=== PATIENT | female | born 1990 | race Caucasian/White ===

== ENCOUNTER → 2018-12-04 15:37 | Outpatient (CLI) | payer OTHER, SELFPAY ==
[2014-10-02 00:27] VITALS: BMI 18.5
[2018-12-04 17:39] LABS: Hematocrit 43.5 % (37-47); Hemoglobin 14.4 g/dl (12.0-15.0); Mean Corp Hgb Conc 33.1 g/gl (32-36); Mean Corpuscular Hgb 30.7 pg (27.0-32.0); Mean Corpuscular Volume 92.8 fL (81-99); Mean Platelet Vol. 9.1 fl (6.2-12.0); Platelet Count 465 K/mm3 (150-450); RBC Distribution Width CV 12.5 % (11.6-14.6); Red Blood Count 4.69 M/mm3 (4.2-5.4); White Blood Count 10.7 K/mm3 (4.4-11.0)
[2018-12-04 17:47] LABS: Scan Indicated on CBC? Y/N NO
[2018-12-04 17:59] LABS: CRP < 2.90 mg/L (0.0-3.0); T4 Total, Thyroxin 12.4 ug/dL (4.8-13.9); Thyroid Stim Hormone (TSH) 1.11 uIU/mL (0.358-3.74)
[2018-12-06 20:07] LABS: Endomysial Antibody IgA Negative (Negative)
[2018-12-07 09:28] LABS: Immunoglobulin A 316 mg/dL (87-352); t-Transglutaminase IgA <2 U/mL (0-3)
== END ==
PROVIDERS: Family Provider Nurse Practitioner Family; PCP Nurse Practitioner Family; Referring Provider Internal Medicine Gastroenterology; Visit Provider Internal Medicine Gastroenterology
DX: R10.9 Unspecified abdominal pain (principal); R63.4 Abnormal weight loss
CPT/HCPCS: 36415; 82784; 83516; 84436; 84443; 85027; 86140; 86255

== ENCOUNTER 2020-05-07 13:01 | Emergency (ER) | payer OTHER, SELFPAY ==
[2020-05-07 13:03] VITALS: BP 139/102; PULSE 117; RESP 12; TEMP 36.6; O2SAT 98; BMI 20.1
[2020-05-07] MEDS: MethylPREDNISolone 125 MG/2 ML Vial 80 MG IV (13:11)
[2020-05-07] MEDS: DiphenhydrAMINE 50 MG/ML Syringe 25 MG IV (13:11)
[2020-05-07 13:21] VITALS: BP 119/90; PULSE 98; RESP 14; O2SAT 100
--- NOTE | 2020-05-07 14:23 | ED.VIS.GEN ---
History of Present Illness Chief Complaint: Allergic Reaction Informant: Patient Onset: Today Narrative: Patient was eating sunflower kernels when all of a sudden she felt tingling in her lips and felt that her throat was swelling and she could not breathe. She took 2 Benadryl came to emergency. She denies any prior reaction to sunflower seeds. Past Medical History - Allergies and Home Meds Allergies/Adverse Reactions: Allergies Penicillins [PCN] Allergy (Verified 10/02/14 00:29) Hives Primary Care Physician: Shanell Savage NP-C [Primary Care Provider] - Smoking Status: Never smoker Review of Systems General: Denies: Chills, Fever, Sweats Eyes: Denies: Visual changes - bilaterally, Diplopia ENT: Reports: - - Sensation of throat swelling. Denies: Rhinorrhea, Sore throat Cardiovascular: Denies: Chest pain, Palpitations Respiratory: Reports: Dyspnea. Denies: Cough, Dyspnea on exertion Gastrointestinal: Denies: Abdominal pain, Nausea, Vomiting, Diarrhea, Melena, Hematochezia Genitourinary: Denies: Dysuria, Hematuria, Frequency Musculoskeletal: Denies: Back pain, Extremity Pain Skin: Denies: Rash, Wounds Neurological: Denies: Headache, Weakness, Numbness Physical Exam Vital Signs/Narrative: Vital Signs Temp Pulse Resp BP Pulse Ox 05/07/20 13:21 98 14 119/90 H 100 05/07/20 13:03 98 F 117 H 12 139/102 H 98 Inital Vital Signs reviewed: Yes General: Well nourished, Well developed, No Acute Distress Head: Normocephalic, Atraumatic Eyes: Perrl, EOMI ENT: Moist mucous membranes, No rhinorrhea, - - There is no stridor. I do not see any swelling of the tongue or oral pharyngeal tissue. Neck: Supple, Nontender Cardiovascular: Regular rate, Regular rhythm, No murmurs Respiratory: No distress, CTA bilaterally, Chest nontender Abdomen: Soft, Nontender, Nondistended, Normal bowel sounds Back: Nontender, Normal Inspection Extremities: Nontender, No edema Skin: Normal color, - - There is some redness on the upper anterior chest. I do not see hives. Neurological: Alert, Oriented x3, Cranial nerves II-XII grossly intact, Normal Strength, Normal Sensation Psychological: - - Patient appears very anxious Diagnostic/Tx/Re-eval - Medical Decision Making Patient received 25 mg of Benadryl and 80 of Solu-Medrol and she was observed. After 2 hours she is doing well. Patient will be discharged home with instructions for Benadryl and I will write for prednisone for a couple days. ED Disposition - Plan for ED Patient: Disposition: Home or Assisted Living Diagnosis: Allergic reaction to food Instructions: ED General Allergic Reactions Prescriptions: Prednisone [Deltasone] 40 mg PO DAILY #6 tab Prescription Printed Referrals: Shanell Savage NP-C [Primary Care Provider] - As Needed Additional Instructions: Please take Benadryl 25 mg every 8 hours for the next 2 days
[2020-05-07 15:09] VITALS: BP 108/75; PULSE 100; PULSE 98; RESP 18; O2SAT 98
== END 2020-05-07 15:15 | disposition home or self-care (01) ==
LOC: ED 14:25
PROVIDERS: Emergency Provider Emergency Medicine; PCP Nurse Practitioner Family
DX: T78.1XXA Other adverse food reactions, not elsewhere classified, initial encounter (principal)
CPT/HCPCS: 96374; 96375; 99284; A4216

== ENCOUNTER 2022-03-17 21:22 | Inpatient (IN) | payer OTHER, MEDICAID, SELFPAY ==
[2022-03-17 19:41] VITALS: TEMP 36.2
[2022-03-17 19:49] VITALS: BP 112/78; PULSE 109; O2SAT 99
[2022-03-17 20:05] VITALS: BMI 25.3
[2022-03-17 21:16] LABS: ROM Internal Control Test YES-OK TO RESULT pt. (Internal QC)
[2022-03-17 21:17] LABS: ROM Patient Test POSITIVE (Negative)
[2022-03-17 22:23] LABS: Absolute Lymphocyte Count 3.06 X10^3/uL (0.83-4.51); Absolute Neutrophil Count 12.3 X10^3/uL (2.0-7.7); Basophil# 0.04 X10^3/uL; Basophil% 0.2 % (0-1); Eosinophil# 0.05 X10^3/uL; Eosinophils% 0.3 % (0-5); Hematocrit 36.8 % (37-47); Hemoglobin 12.4 g/dL (12.0-15.0); Lymphocyte # 3.06 X10^3/ul (0.83-4.51); Lymphocyte % 18.5 % (19-41); Mean Corp Hgb Conc 33.7 g/dL (32-36); Mean Corpuscular Hgb 29.9 pg (27.0-32.0); Mean Corpuscular Volume 88.7 fL (81-99); Mean Platelet Vol. 9.3 fl (6.2-12.0); Monocyte% 5.4 % (0-10); NRBC Flagged by Analyzer 0 % (0-5); Neutrophil # 12.34 X10^3/uL (2.7-7.7); Neutrophil % 74.7 % (47-70); Platelet Count 436 K/mm3 (150-450); RBC Distribution Width CV 15.5 % (11.6-14.6); RBC Distribution Width SD 50.3 fl (35.1-43.9); Red Blood Count 4.15 M/mm3 (4.2-5.4); White Blood Count 16.5 K/mm3 (4.4-11.0)
[2022-03-17 23:02] VITALS: BP 115/78; PULSE 88
[2022-03-18] VITALS (87 sets, daily range): BP systolic 82–134; BP diastolic 49–87; PULSE 59–125; RESP 16; TEMP 36.3–37.4; O2SAT 82–100
[2022-03-18] MEDS: Lactated Ringers 1,000 ML 50 ML IV (00:10)
[2022-03-18] MEDS: Ondansetron 4 MG/2 ML Vial IV ×2 (01:09→22:12)
[2022-03-18] MEDS: Lactated Ringers 500 ML 999 ML IV ×2 (02:11→03:40)
--- NOTE | 2022-03-18 03:05 | PCM.HP.OB ---
HPI - General General Date of Admission: 03/17/22 HPI Narrative FLOR AGUAYO, is a 32 F who presents with rupture of membranes at term. at 39w5d. complicated by anxiety, depression and history of PTSD. unplanned but accepted. Maternal Data Information JEROME Calculator Estimated Delivery Date Method Current WG Current Estimate 03/20/22 Manual 39w 5d PFSH PFSH Medical History (Updated 03/18/22 @ 03:13 by Lissett Addison CNM) Anxiety Depression HPV (human papilloma virus) infection Home Medications aspirin [Baby Aspirin] 81 mg PO DAILY 03/17/22 [History Last Taken 03/17/22 06:30] cetirizine [Zyrtec] 10 mg PO DAILY PRN 03/17/22 [History Last Taken 03/16/22 22:00] ferrous sulfate 325 mg PO QHS 03/17/22 [History Last Taken 03/16/22 22:00] vit-iron fum-folic ac [Prena-Tab] 1 tab PO DAILY 03/17/22 [History Last Taken 03/16/22 06:30] Allergy/AdvReac Type Severity Reaction Status Date / Time amoxicillin Allergy Hives Verified 03/17/22 22:30 Penicillins [PCN] Allergy Hives Verified 03/17/22 22:30 peaches Allergy Hives Uncoded 03/17/22 22:31 sunflower seeds Allergy Anaphylaxis Uncoded 03/17/22 22:31 Surgical History (Updated 03/17/22 @ 22:48 by Lori Bucio) History of surgery Social History Smoking Status: Never smoker History Elective abortions Hx Para 0 Spontaneous abortions Hx # Term Pregnancies Ectopic pregnancies Hx # Pregnancies Multiple births # of living children NST FHR Rate Baby A Baseline: 140 Variability:: Moderate Accelerations:: 15 x 15 Decelerations:: Variable FHR Category:: Category II Uterine Activity:: every 3 minutes, strong ROS Constitutional Constitutional: Reports systems reviewed and no addt'l complaints, except as documented; Denies headache(s) Eyes Eyes: Denies acute decrease in peripheral vision, blurry vision or change in vision ENT HEENT: Reports systems reviewed and no addt'l complaints, except as documented Cardiovascular Cardiovascular: Denies chest pain or dizziness Respiratory/Chest Respiratory/Chest: Denies cough, dyspnea, dyspnea on exertion, shortness of breath at rest or shortness of breath with exertion Gastrointestinal Gastrointestinal: Denies abdominal pain, diarrhea, nausea or vomiting Genitourinary Genitourinary: Denies abdominal discomfort or movement Musculoskeletal Musculoskeletal: Denies limited range of motion Integumentary Integumentary: Reports systems reviewed and no addt'l complaints, except as documented Neurologic Neurologic: Reports systems reviewed and no addt'l complaints, except as documented Psychiatric Psychiatric: Reports systems reviewed and no addt'l complaints, except as documented Endocrine Endocrinology: Reports systems reviewed and no addt'l complaints, except as documented Hematologic/Lymphatic Hematologic/Lymphatic: Reports systems reviewed and no addt'l complaints, except as documented Allergic/Immunologic Allergic/Immunologic: Reports systems reviewed and no addt'l complaints, except as documented Vital Signs Vital Signs Vital Signs: 03/17/22 19:41 03/17/22 19:49 03/17/22 23:02 Temperature 97.2 F L Temperature Source Temporal Pulse Rate 109 H 88 Blood Pressure 112/78 115/78 BP Systolic 112 115 BP Diastolic 78 78 Pulse Ox 99 03/18/22 00:06 03/18/22 01:03 03/18/22 01:05 Temperature 97.8 F Temperature Source Temporal Pulse Rate 90 103 H 102 H Blood Pressure 117/78 88/58 L 86/59 L BP Systolic 117 88 86 BP Diastolic 78 58 59 Pulse Ox 98 03/18/22 01:13 03/18/22 02:28 Temperature 97.8 F Temperature Source Temporal Pulse Rate 93 64 Blood Pressure 125/83 H 134/68 H BP Systolic 125 134 BP Diastolic 83 68 Pulse Ox Weight Weight: 134 lb 0.657 oz Body Mass Index (BMI) 25.3 Physical Exam Const alert and oriented x3 General Appearance: cooperative Orientation / Consciousness: awake, oriented to person, oriented to place and oriented to time Exam Limitations: no limitations HEENT normocephalic Head and Scalp: normal to inspection, normocephalic and atraumatic Face and Sinus: normal facial exam Eyes General Eye: normal appearance of both eyes Neck full ROM Chest Chest: symmetrical chest wall rise Resp normal respiratory effort and normal air movement Auscultation: clear to auscultation bilaterally Cardio regular rate, regular rhythm, S1 normal heart sound, S2 normal heart sound, no murmurs, no rub, no gallops and no clicks GI normal to inspection, nondistended, normoactive bowel sounds and non-tender appearance of the vagina normal Bladder / Kidney Exam: no CVA tenderness Manual OB Exam: estimated gestational size appropriate, presentation cephalic and dilated 5cm per nursing staff Amniotic Fluid: ROM+plus positive + Back/Spine normal ROM Extremity normal to inspection and full ROM Skin no rashes or lesions noted Neuro oriented x3, CN's II-XII intact bilaterally and moves all extremities Sensorium / Orientation: awake, alert and oriented to person Motor Exam: clonus absent Deep Tendon Reflexes: Rt Patellar (L4): 2+ and Lt Patellar (L4): 2+ Labs Labs Labs: Blood Type O POSITIVE Antibody Screen NEGATIVE Hct 36.8 % (37-47) L Hgb 12.4 g/dL (12.0-15.0) RPR negative HIV negativ HBsAG negative HepC negative Rubella Immune GC/CT negative O positive, antibody screen negative GBS positive Assessment & Plan (1) PROM (premature rupture of membranes): (2) Term : (3) History of depression: (4) History of anxiety: (5) PTSD (post-traumatic stress disorder): PLAN: 1) Admit to labor and delivery 2) Routine labs, covid testing 3) Continuous EFM 4) Epidural for pain management upon request 5) GBS positive, PCN allergic with hives. Vancomycin 20mg/kg every 8 hrs 6) notified of labor
[2022-03-18] MEDS: fentaNYL-bupivacaine (epidural) 100 ML BAG EPIDURAL ×4 (03:40→14:22)
[2022-03-18] MEDS: Lactated Ringers 1,000 ML 200 ML IV ×2 (08:17→13:18)
[2022-03-18] MEDS: Mag Hydrox/Al Hydrox/Simeth 30 ML UDC PO (11:18)
[2022-03-18] MEDS: Oxytocin 30 units/NS 500 ml 30 UNITS/500 ML IV.SOLN 334 UNITS IV (16:02)
--- NOTE | 2022-03-18 16:34 | EX.PCM.OBRPT ---
Assessment & Plan (1) Vaginal delivery: (2) PTSD (post-traumatic stress disorder): (3) History of anxiety: (4) History of depression: Maternal Data Information JEROME Calculator Estimated Delivery Date Method Current WG Current Estimate 03/20/22 Manual 39w 5d Vaginal Delivery Maternal Presentation Maternal Presentation: Active Labor and Spontaneous Rupture of Membranes (PROM) Operative Information Date of Procedure: 03/18/22 Pre-Operative Diagnosis: PROM at term Post-Operative Diagnosis: , 2nd degree perineal laceration Surgery / Procedure Performed: Spontaneous Vaginal Delivery Type of Anesthesia: Epidural Estimated Blood Loss: 300 ml Time of Delivery: 15:59 Findings Description of Procedure: Progressed to complete with urge to push. Epidural for pain management. of viable male over 2nd degree LML episiotomy. APGARS 8,9. Infant head with heart tones to approximately 75bmp, consent for episiotomy to expedite delivery. head delivered and body immediately forthcoming, CAN x1, delivered through and placed on maternal abdomen. Mouth and nares suctioned for secretions strong cry. Pitocin started for active 3rd stage management. Cord clamped and cut after pulsations ceased. Placenta delivered intact via dayday, 3 vessel cord. Perineum inspected and LML episiotomy repaired with 3.0 vicryl under epidural analgesia. Well approximated and hemostasis achieved. EBL 300ml. Sponge and instrument count correct. Vaginal sweep completed. Mom and baby stable, bonding well. Planning to breastfeed. notified of delivery. Presentation: Vertex and EREN Amniotic Membrane Rupture Type: Spontaneous Amniotic Fluid Description: Clear Placental Delivery Description: Expressed Placenta Disposition: [facility] Cord Vessel Description: 3 Vessels Cord Entanglement: Around neck x 1, loose Nuchal Cord Compression: Without compression A Gender: Male Delayed Cord Clamping: Yes Post Vaginal Delivery Medications Given After Delivery: IV Pitocin Episiotomy Description: Left Mediolateral and 2nd degree Laceration: None Complication Complications: None
[2022-03-18] MEDS: Ibuprofen 600 MG Tablet PO (19:02)
[2022-03-18] MEDS: Benzocaine/Lanolin/Aloe Vera 1 SPRAY EACH TOPICAL (19:04)
[2022-03-18] MEDS: 0.9% Saline Lock 10 ML Syringe IV (22:13)
[2022-03-19] VITALS (14 sets, daily range): BP systolic 95–111; BP diastolic 52–74; PULSE 84–120; RESP 16; TEMP 36.1–36.6; O2SAT 91–100
[2022-03-19] MEDS: Ibuprofen 600 MG Tablet PO ×2 (03:46→16:02)
[2022-03-19 05:27] LABS: Hematocrit 33.1 % (37-47); Hemoglobin 10.9 g/dL (12.0-15.0); Mean Corp Hgb Conc 32.9 g/dL (32-36); Mean Corpuscular Hgb 29.9 pg (27.0-32.0); Mean Corpuscular Volume 90.9 fL (81-99); Mean Platelet Vol. 9.6 fl (6.2-12.0); Platelet Count 386 K/mm3 (150-450); RBC Distribution Width CV 15.8 % (11.6-14.6); Red Blood Count 3.64 M/mm3 (4.2-5.4); White Blood Count 27.2 K/mm3 (4.4-11.0)
[2022-03-19] MEDS: Senna/Docusate Sodium 1 Tablet PO (08:30)
--- NOTE | 2022-03-19 10:06 | PCM.PN.OB ---
Subjective Subjective Doing well per patient and nursing staff. Ambulating and taking PO without difficulty. Voiding and passing flatus. Pain controlled. , services for assistance. Denies headache, visual changes, chest pain, shortness of breath, leg pain or increased bleeding. Lochia normal. Objective Data Objective Data Vital Signs: Vital Signs Temp Pulse Resp BP Pulse Ox 97.0 F L 87 16 95/52 L 100 03/19/22 08:38 03/19/22 08:39 03/19/22 08:38 03/19/22 08:39 03/19/22 04:13 Oxygen Delivery Method Room Air Weight: 134 lb 0.657 oz Body Mass Index (BMI) 25.3 Intake & Output: Intake and Output for Last 24 Hours 03/17/22 03/18/22 03/19/22 23:59 23:59 23:59 Intake Total 4871.67 / 4871.67 Output Total 1850 / 1850 500 / 500 Balance 3021.67 / 3021.67 -500 / -500 Lab / Micro Data Result Diagrams: 03/19/22 05:00 Labs: Laboratory Results - last 24 hr 03/19/22 05:00: WBC 27.2 H, RBC 3.64 L, Hgb 10.9 L, Hct 33.1 L, MCV 90.9, MCH 29.9, MCHC 32.9, RDW Std Deviation 53.0 H, RDW Coeff of Kelli 15.8 H, Plt Count 386, MPV 9.6 Micro: Microbiology 03/17/22 22:15 Nasal Secretion SARS-CoV-2 Antigen (Rapid) - Final ROS Constitutional Constitutional: Reports systems reviewed and no addt'l complaints, except as documented; Denies headache(s) Eyes Eyes: Denies acute decrease in peripheral vision, blurry vision or change in vision ENT HEENT: Reports systems reviewed and no addt'l complaints, except as documented Cardiovascular Cardiovascular: Denies chest pain or dizziness Respiratory/Chest Respiratory/Chest: Denies cough, dyspnea, dyspnea on exertion, shortness of breath at rest or shortness of breath with exertion Gastrointestinal Gastrointestinal: Denies abdominal pain, diarrhea, nausea or vomiting Genitourinary Genitourinary: Denies abdominal discomfort Musculoskeletal Musculoskeletal: Denies limited range of motion Integumentary Integumentary: Reports systems reviewed and no addt'l complaints, except as documented Neurologic Neurologic: Reports systems reviewed and no addt'l complaints, except as documented Psychiatric Psychiatric: Reports systems reviewed and no addt'l complaints, except as documented Endocrine Endocrinology: Reports systems reviewed and no addt'l complaints, except as documented Hematologic/Lymphatic Hematologic/Lymphatic: Reports systems reviewed and no addt'l complaints, except as documented Allergic/Immunologic Allergic/Immunologic: Reports systems reviewed and no addt'l complaints, except as documented Physical Exam Const alert and oriented x3 General Appearance: cooperative Orientation / Consciousness: awake, oriented to person, oriented to place and oriented to time Exam Limitations: no limitations HEENT normocephalic Head and Scalp: normal to inspection, normocephalic and atraumatic Face and Sinus: normal facial exam Eyes General Eye: normal appearance of both eyes Neck full ROM Chest Chest: symmetrical chest wall rise Resp normal respiratory effort and normal air movement Auscultation: clear to auscultation bilaterally Cardio regular rate, regular rhythm, S1 normal heart sound, S2 normal heart sound, no murmurs, no rub, no gallops and no clicks GI normal to inspection, nondistended, normoactive bowel sounds and non-tender Bladder / Kidney Exam: no CVA tenderness Back/Spine normal ROM Extremity normal to inspection and full ROM Skin no rashes or lesions noted Neuro oriented x3, CN's II-XII intact bilaterally and moves all extremities Sensorium / Orientation: awake, alert and oriented to person Motor Exam: clonus absent Deep Tendon Reflexes: Rt Patellar (L4): 2+ and Lt Patellar (L4): 2+ Assessment & Plan (1) Vaginal delivery: (2) PTSD (post-traumatic stress disorder): (3) History of anxiety: (4) History of depression: (5) Lactating mother: PLAN: 1) Routine PP care 2) services 3) Pain management 4) Vitals stable 5) Hgb stable 6) Planning D/C home tomorrow
[2022-03-20] VITALS (11 sets, daily range): BP systolic 98–118; BP diastolic 62–72; PULSE 81–98; RESP 16–18; TEMP 36.2–36.4; O2SAT 97–100
[2022-03-20] MEDS: Ibuprofen 600 MG Tablet PO ×3 (03:01→15:30)
--- NOTE | 2022-03-20 07:43 | PCM.PN.OB ---
Subjective Subjective Patient seen at bedside. Resting quietly. Denies any pain. Ambulating and voiding without difficulty. with minimal support. Desires discharge home today. Objective Data Objective Data Vital Signs: Vital Signs Temp Pulse Resp BP Pulse Ox 97.2 F L 81 18 98/64 97 03/20/22 03:00 03/20/22 03:49 03/20/22 03:00 03/20/22 03:49 03/20/22 03:00 Oxygen Delivery Method Room Air Weight: 134 lb 0.657 oz Body Mass Index (BMI) 25.3 Intake & Output: Intake and Output for Last 24 Hours 03/18/22 03/19/22 03/20/22 23:59 23:59 23:59 Intake Total 4871.67 / 4871.67 Output Total 1850 / 1850 500 / 500 Balance 3021.67 / 3021.67 -500 / -500 Lab / Micro Data Result Diagrams: 03/19/22 05:00 Micro: Microbiology 03/17/22 22:15 Nasal Secretion SARS-CoV-2 Antigen (Rapid) - Final ROS Eyes Eyes: Denies blurry vision, change in vision or spots in vision ENT HEENT: Denies dizziness or headache(s) Cardiovascular Cardiovascular: Denies abdominal pain, chest pain or dyspnea Respiratory/Chest Respiratory/Chest: Denies cough, dyspnea, shortness of breath at rest or shortness of breath with exertion Gastrointestinal Gastrointestinal: Denies abdominal pain, diarrhea or vomiting Genitourinary Genitourinary: Denies change in urinary stream, difficulty urinating or dysuria Musculoskeletal Musculoskeletal: Reports none Integumentary Integumentary: Denies rash Neurologic Neurologic: Denies dizziness, headache(s), memory loss or weakness Physical Exam Const alert and no apparent distress General Appearance: cooperative and comfortable Exam Limitations: no limitations HEENT normocephalic Eyes General Eye: normal appearance of both eyes Neck full ROM General: normal visual inspection Chest Chest: symmetrical chest wall rise Resp normal respiratory effort and normal air movement Effort and Inspection: symmetric chest movement Auscultation: clear to auscultation bilaterally Cardio regular rate and regular rhythm GI normal to inspection, nondistended, normoactive bowel sounds Back/Spine normal ROM Extremity full ROM and no calf tenderness General Extremity: normal exam except as noted Skin no rashes or lesions noted Neuro CN's II-XII intact bilaterally Psych mental status grossly normal Assessment & Plan (1) Lactating mother: (2) Vaginal delivery: (3) PTSD (post-traumatic stress disorder): (4) History of anxiety: (5) History of depression: PLAN: PPD 2 Routine care Pain control support D/C home with follow up in office 2 weeks
--- NOTE | 2022-03-20 07:45 | DCINST_ITS ---
Discharge Instructions Diet Discharge Diet: No restrictions Activity May resume sexual activity in: 6-8 weeks Weight Bearing Status: Weight bearing as tolerated Dressing / Incision Call your doctor if you observe: Fever of 101 or Higher, Inability to urinate, Using more than 1 pad per hour, Shortness of breath, Chest pain, Calf discomfort and Uncontrolled pain Follow Up Care When: 2 weeks virtual visit/ 6 weeks in office Test Results: Test results from this visit will be discussed in further detail at your follow-up appointment, if applicable. Discharge Plan Admission Admit Date/Time: 03/17/22 21:22 Primary Reason for Your Visit: Labor and Delivery Attending Provider: Lissett Addison Primary Care Provider: Shanell Savage NP Discharge Orders/Prescriptions Prescriptions: New sennosides-docusate sodium [Stool Softener-Stimulant Laxat] 8.6-50 mg Tablet 1 - 2 tab PO DAILY PRN PRN (Reason: Constipation ) Qty: 0 RF: 0 Continued cetirizine [Zyrtec] 10 mg Tablet 10 mg PO DAILY PRN (Reason: Allergy Symptoms) RF: 0 vit-iron fum-folic ac 65 mg iron- 1 mg Tablet 1 tab PO DAILY RF: 0 ferrous sulfate 325 mg (65 mg iron) Capsule, Extended Release 325 mg PO QHS RF: 0 Discontinued aspirin [Baby Aspirin] 81 mg Tablet,Chewable 81 mg PO DAILY RF: 0 Referrals / Follow Up: Shanell Savage OCCUPATIONAL THERAPIST REHAB MANAGER, OCCUPATIONAL THERAPIST REHAB MANAGER-C [Primary Care Provider] - Disposition Disposition (needs filled in before D/C Order can be placed): Home, Self Care
[2022-03-20] MEDS: Senna/Docusate Sodium 1 Tablet PO (14:34)
== END 2022-03-20 21:00 | disposition home or self-care (01) | DRG 806 ==
LOC: WPOUT 21:23 → WP 03-18 16:08
PROVIDERS: Admitting Provider Advanced Practice Midwife; PCP Nurse Practitioner Family; Visit Provider Advanced Practice Midwife
DX: O42.92 Full-term premature rupture of membranes, unspecified as to length of time between rupture and onset of labor (principal); Z37.0 Single live birth; O98.82 Other maternal infectious and parasitic diseases complicating childbirth; F41.9 Anxiety disorder, unspecified; B95.1 Streptococcus, group B, as the cause of diseases classified elsewhere; F32.A Depression, unspecified; O99.344 Other mental disorders complicating childbirth; Z3A.39 39 weeks gestation of pregnancy; Z79.899 Other long term (current) drug therapy; O76 Abnormality in fetal heart rate and rhythm complicating labor and delivery; F43.10 Post-traumatic stress disorder, unspecified; O70.1 Second degree perineal laceration during delivery; O69.81X0 Labor and delivery complicated by cord around neck, without compression, not applicable or unspecified
CPT/HCPCS: 59025; 59050; 84112; 85025; 85027; 86850; 86900; 86901; 87811; 99218; J7050; J7120; A4216; G0378; J2405

== ENCOUNTER 2024-01-31 23:18 | Inpatient (IN) | payer OTHER, MEDICAID, SELFPAY ==
[2024-01-31 23:11] VITALS: BP 117/77; PULSE 80; RESP 16; TEMP 36.7; O2SAT 99
[2024-01-31 23:32] VITALS: BMI 26.4
[2024-01-31] MEDS: LACTATED RINGERS 500 ML 999 ML IV (23:50)
[2024-01-31 23:59] LABS: Absolute Lymphocyte Count 4.07 X10^3/uL (0.83-4.51); Absolute Neutrophil Count 7.9 X10^3/uL (2.0-7.7); Basophil# 0.03 X10^3/uL; Basophil% 0.2 % (0-1); Eosinophil# 0.09 X10^3/uL; Eosinophils% 0.7 % (0-5); Hematocrit 36.7 % (37-47); Lymphocyte # 4.07 X10^3/ul (0.83-4.51); Lymphocyte % 31.4 % (19-41); Mean Corp Hgb Conc 32.7 g/dL (32-36); Mean Corpuscular Hgb 29.2 pg (27.0-32.0); Mean Corpuscular Volume 89.3 fL (81-99); Monocyte# 0.83 X10^3/uL; Monocyte% 6.4 % (0-10); NRBC Flagged by Analyzer 0 % (0-5); Neutrophil # 7.86 X10^3/uL (2.7-7.7); Neutrophil % 60.7 % (47-70); Platelet Count 462 K/mm3 (150-450); RBC Distribution Width SD 45.5 fl (35.1-43.9); Red Blood Count 4.11 M/mm3 (4.2-5.4)
[2024-01-31] MEDS: Ondansetron 4 MG/2 ML Vial IV (23:59)
[2024-02-01] VITALS (38 sets, daily range): BP systolic 95–127; BP diastolic 53–85; PULSE 60–98; RESP 16–18; TEMP 36.1–37.1; O2SAT 88–100
[2024-02-01] MEDS: Oxytocin 10 UNITS/ML Vial IM (00:23)
[2024-02-01] MEDS: Oxytocin 15 Units/NS 250ml 15 UNITS/250 ML IV.SOLN 83 UNITS IV (00:24)
--- NOTE | 2024-02-01 00:40 | PCM.HP.OB ---
HPI - General General Date of Admission: 01/31/24 HPI Narrative FLOR AGUAYO, is a 33 F at 37.4 weeks who presents in spontaneous, active labor. S.R.O.M for large amount of clear fluid at 2150. Maternal Data Information JEROME Calculator Estimated Delivery Date Method Current WG Current Estimate 02/17/24 Manual 37w 5d PFSH PFSH Medical History (Updated 02/01/24 @ 00:44 by Estephania Wynn CNM) Anxiety Depression History of anxiety History of depression HPV (human papilloma virus) infection Lactating mother PROM (premature rupture of membranes) PTSD (post-traumatic stress disorder) Term Vaginal delivery Home Medications ferrous sulfate 325 mg (65 mg iron) capsule,extended release 325 mg PO QODAY anemia 03/17/22 [History Last Taken 01/31/24] vitamins-iron fumarate 65 mg iron-folic acid 1 mg tablet 1 tab PO DAILY 03/17/22 [History Last Taken 01/31/24] famotidine 20 mg tablet 20 mg PO BID PRN PRN heartburn 01/31/24 [History Last Taken 01/31/24] sertraline 50 mg tablet 100 mg PO DAILY depression 01/31/24 [History Last Taken 01/31/24] valacyclovir 1 gram tablet 1,000 mg PO DAILY HSV prophylaxis 01/31/24 [History Last Taken 01/31/24] Allergy/AdvReac Type Severity Reaction Status Date / Time amoxicillin Allergy Hives Verified 01/31/24 23:30 peach Allergy Hives Verified 01/31/24 23:30 Penicillins [PCN] Allergy Hives Verified 01/31/24 23:30 sunflower seed Allergy Anaphylaxis Verified 01/31/24 23:30 Surgical History (Updated 03/17/22 @ 22:48 by Lori Bucio) History of surgery Social History Smoking Status: Never smoker History Elective abortions Hx Para 0 Spontaneous abortions Hx # Term Pregnancies Ectopic pregnancies Hx # Pregnancies Multiple births # of living children ROS Eyes Eyes: Denies blurry vision, change in vision or spots in vision ENT HEENT: Denies dizziness or headache(s) Cardiovascular Cardiovascular: Denies abdominal pain, chest pain or dyspnea Respiratory/Chest Respiratory/Chest: Denies cough, dyspnea, shortness of breath at rest or shortness of breath with exertion Gastrointestinal Gastrointestinal: Denies abdominal pain, diarrhea or vomiting Genitourinary Genitourinary: Denies change in urinary stream, difficulty urinating or dysuria Musculoskeletal Musculoskeletal: Reports none Integumentary Integumentary: Denies rash Neurologic Neurologic: Denies dizziness, headache(s), memory loss or weakness Psychiatric Psychiatric: Reports none Vital Signs Vital Signs Vital Signs: 01/31/24 23:11 01/31/24 23:11 02/01/24 00:13 Pulse Rate 80 87 Blood Pressure 117/77 BP Systolic 117 BP Diastolic 77 Pulse Ox 02/01/24 00:13 02/01/24 00:32 02/01/24 00:32 Pulse Rate 98 Blood Pressure 112/56 L BP Systolic 112 BP Diastolic 56 Pulse Ox 99 02/01/24 00:32 02/01/24 00:37 02/01/24 00:37 Pulse Rate 96 Blood Pressure BP Systolic BP Diastolic Pulse Ox 100 99 Weight Weight: 141 lb 15.643 oz Body Mass Index (BMI) 26.4 Physical Exam Const alert, oriented x3 and no apparent distress General Appearance: cooperative Orientation / Consciousness: awake Exam Limitations: no limitations HEENT normocephalic Head and Scalp: normal to inspection Eyes General Eye: normal appearance of both eyes Neck full ROM and no lymphadenopathy Lymph Lymphatic: no lymphadenopathy noted Chest inspection of chest normal Resp normal respiratory effort, normal air movement and clear to auscultation bilaterally Effort and Inspection: able to speak in complete sentences and symmetric chest movement Cardio regular rate and regular rhythm GI normal to inspection, nondistended, normoactive bowel sounds Manual OB Exam: presentation cephalic Amniotic Fluid: clear amniotic fluid Back/Spine normal ROM Extremity full ROM and no calf tenderness Skin no rashes or lesions noted General Skin Exam: no breakdown Neuro oriented x3 and CN's II-XII intact bilaterally Psych mental status grossly normal and thought process normal Labs Labs Labs: Blood Type O POSITIVE Antibody Screen NEGATIVE Hct 36.7 % (37-47) L Hgb 12.0 g/dL (12.0-15.0) Syphilis Total Ab Pending Rhogam given: No GBS NEG Assessment & Plan (1) 37 weeks gestation of : (2) Spontaneous onset of labor: (3) Spontaneous rupture of amniotic membranes: (4) PTSD (post-traumatic stress disorder): (5) Depression: (6) Anxiety: (7) History of herpes genitalis: PLAN: Plan CE 3.5/80/-1 Large amount of clear fluid Admit to labor and delivery GBS negative Epidural when indicated Anticipate Dr. Hendrix notified of admission
--- NOTE | 2024-02-01 00:45 | EX.PCM.OBRPT ---
Assessment & Plan (1) Precipitous delivery: (2) History of herpes genitalis: (3) Spontaneous rupture of amniotic membranes: (4) Spontaneous onset of labor: (5) 37 weeks gestation of : (6) PTSD (post-traumatic stress disorder): (7) Depression: (8) Anxiety: (9) (spontaneous vaginal delivery): Maternal Data Information JEROME Calculator Estimated Delivery Date Method Current WG Current Estimate 02/17/24 Manual 37w 5d Gestational age: 37.5 [place] Doctor Who Attended Delivery: Stephy Gillis Vaginal Delivery Maternal Presentation Maternal Presentation: Spontaneous Rupture of Membranes Maternal Presentation: that presented with spontaneous onset of labor and spontaneous rupture of membranes. GBS negative. Operative Information Date of Procedure: 02/01/24 Pre-Operative Diagnosis: Term gestation, Spontaneous onset of labor, Spontaneous rupture of membranes Post-Operative Diagnosis: Precipitous delivery, , Live female infant Surgery / Procedure Performed: Spontaneous Vaginal Delivery Type of Anesthesia: None Estimated Blood Loss: 200 Time of Delivery: 00:20 Findings Description of Procedure: Patient arrived to unit and quickly progressed to complete dilation. Called to patient room. With good maternal effort, head delivered followed immediately by remainder of infant body. Loose nuchal cord easily reduced. Due to infant color and tone, cord clamped and cut immediately and infant handed off to awaiting nursery staff. Pitocin IM given for active management of the third stage of labor. Cord blood and gasses collected and sent to lab. Placenta delivered spontaneously and intact. Vagina and perineum intact. Vaginal sweep completed by me. Fundus firm and 2 below U. EBL 200 cc. Patient and infant bonding well at this time. Dr. Hendrix notified of delivery. Presentation: Vertex Amniotic Membrane Rupture Type: Spontaneous Time of Membrane Rupture: 2149 Amniotic Fluid Description: Clear Placental Delivery Description: Spontaneous Placenta Disposition: [facility] Cord Vessel Description: 3 Vessels Cord Entanglement: Around neck x 1, loose Nuchal Cord Compression: Without compression Cord Gases: ABG and VBG A Gender: Female (1 minute): 4 (5 minute): 9 Delayed Cord Clamping: No Post Vaginal Delivery Medications Given After Delivery: IM Pitocin Episiotomy Description: None Laceration: None Complication Complications: None
[2024-02-01 00:52] LABS: Syphilis Antibodies Non-reactive
[2024-02-01] MEDS: Naproxen 500 MG Tablet PO ×2 (01:33→12:36)
[2024-02-01] MEDS: 0.9% Saline Lock 10 ML Syringe IV (03:26)
--- NOTE | 2024-02-01 12:44 | CASEMGMT ---
Social Work Assessment Labor and Delivery Unit Patient Address:[address] [place] [address] [place] [address] Phone number: [phone] Date of Referral: 02/01/24 Time of Referral:? 350 Referred By: Estephania Wynn Date of Intervention: ??02/01/24 Time of Intervention:?1129 Reason for Referral:? history of anxiety and depression Sw completed chart review and acknowledges social work consult due to maternal mental health history positive for anxiety and depression. Sw presented to bedside and introduced self to mother of baby (MANUEL- Aicha) and father of baby (FOSam- Tommie). Sw explained sw role and completed psychosocial assessment. History obtained from: medical records, MOB and FOB Household composition: Currently residing in the home is LORETTA JACKSON, their almost two year old son: Gilberto and now baby. Parents deny any housing concerns or issues at this time. Patient's parent/guardian status:? MOB states that she and LORETTA were not really seeing each other on a steady basis when she got and had Macias. MANUEL states that when Gilberto was around 6/7 months old they became more serious and have been together since, which is around 1 year. No concerns reported regarding domestic violence or intimate partner violence. ? Medical History: MANUEL is 33 year old female who is 2, para 1- now 2 following labor and delivery of . MANUEL presented to hospital in active labor and delivered baby via vaginal delivery on 02/01/24 at 37 weeks gestation. Baby girl, named Loly Baldwin, was born weighing 6lb 15oz with apgars og 4 and 9 at one and five minutes of life, respectfully. MANUEL is breast feeding and states that this is going well. Baby will be followed by Dr. Mclain for pediatrics. ? Educational Status:? Both parents completed high school, MANUEL obtained her associates degree. Financial Status: Both parents are gainfully employed outside of the home. FOB works for [employer]. 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 Supplies:?? Parents have obtained all necessary baby supplies, including: car seat, safe sleep space, clothes, diapers and wipes. MANUEL states that she does have a breast pump for home. Childcare/Caregiver(s):? MOB will be the primary caregiver to baby along with FOSam. MANUEL states that when both parents are at work she will have family members who are able to watch her children. Transportation:?? Both parents have their drivers license and reliable means of transportation. No barriers at this time. Programs/Agencies Involved: ???MANUEL is connected to SNAP benefits and WIC. LORETTA states that he has counseling services that she is connected to at [facility]. Children Services/Legal Issues:?no history of involvement, no issues or concerns warranting a referral to be made at this time. ?? Behavioral Health Issues: ??Mental Health History: LORETTA denies mental health history, but states that there are times when he feels sad and that is why he got connected to counseling supports. MANUEL states that she has a history of anxiety, depression and PTSD. MANUEL reports that she did experience depression and anxiety after her son was born. MANUEL reports that she did not want to leave the house the first couple of weeks following his delivery. MANUEL states that she had a hard time sleeping because she was fearful that the baby was going to in his sleep. MANUEL states that she is prescribed zoloft by her primary care doctor, and decided to increase her dosage as a preventative measure going into her journey. MANUEL states that she is familiar with signs and symptoms of baby blues and depression/ anxiety to be on the lookout for. 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 ??? Substance Use History:?No history of substance use? Family History:?Parents deny family history of addiction or substance use and significant mental health history such as anxiety and depression. ? Drug Screens: No drug screens observed in chart review. ?? Family/Social Stressors:? Paretns deny any issues, concerns or stressors at this time. Support Systems: MANUEL identifies her mom, sister and her friend Izabela to be her biggest supports at this time. Depression/Shaken Baby/Safe Sleeping:? Sw educated parents on signs and symptoms of baby blues and anxiety and depression. FOB states that he would be able to recognize if MOB were struggling with her mental health and he would know how to help and support her. Sw provided parents with literature to review on this issue. Sw educated parents on shaken baby prevention and ABCs of safe sleep. Parents express understanding. ASSESSMENT:? MOB and baby admitted following labor and delivery of . MOB with significant mental health history, and is aware of her triggers and has appropriate and healthy coping mechanisms to utilize if she were to struggle at all during this period. MOB observed to provide loving and appropriate hands on care of . MOB seemed somewhat frustrated by sw intervention and assessment process/ questions. MOB answered questions but did not elaborate or provide ongoing conversation. FOB also participated in conversation and was observed to be attentive to MOB. Parents have obtained everything that they need for baby, and MOB reports to having natural supports in place. PLAN:? MOB and baby to be discharged when medically ready. MOB would also benefit from getting connected to mental health services and supports during this period. List of critical access hospital resources was provided for MOB to review. ?No other services requested or indicated. Gregory Bullard, MANAGER OF CHANGE, AIR TWIST OPERATOR
[2024-02-01] MEDS: Sertraline 100 MG Tablet PO (22:16)
[2024-02-02 01:03] VITALS: BP 103/75; PULSE 82; RESP 16
[2024-02-02 08:06] VITALS: BP 101/73; PULSE 78; RESP 16; TEMP 36.1
--- NOTE | 2024-02-02 10:31 | PCM.PN.OB ---
Subjective Subjective Doing well per patient and nursing staff. Ambulating and taking PO without difficulty. Voiding and passing flatus. Pain controlled. , services for assistance. Denies headache, visual changes, chest pain, shortness of breath, leg pain or increased bleeding. Lochia normal. Objective Data Objective Data Vital Signs: Vital Signs Temp Pulse Resp BP Pulse Ox O2 Del Method 97.0 F L 78 16 101/73 97 Room Air 02/02/24 08:06 02/02/24 08:06 02/02/24 08:06 02/02/24 08:06 02/01/24 19:35 02/02/24 01:03 Oxygen Delivery Method Room Air Weight: 141 lb 15.643 oz Body Mass Index (BMI) 26.4 Intake & Output: Intake and Output for Last 24 Hours 01/31/24 02/01/24 02/02/24 23:59 23:59 23:59 Intake Total 750 / 750 Output Total 800 / 800 Balance -50 / -50 Lab / Micro Data 01/31/24 23:30 ROS Constitutional Constitutional: Reports systems reviewed and no addt'l complaints, except as documented; Denies headache(s) Eyes Eyes: Denies acute decrease in peripheral vision, blurry vision or change in vision ENT HEENT: Reports systems reviewed and no addt'l complaints, except as documented Cardiovascular Cardiovascular: Denies chest pain or dizziness Respiratory/Chest Respiratory/Chest: Denies cough, dyspnea, dyspnea on exertion, shortness of breath at rest or shortness of breath with exertion Gastrointestinal Gastrointestinal: Denies abdominal pain, diarrhea, nausea or vomiting Genitourinary Genitourinary: Denies abdominal discomfort Musculoskeletal Musculoskeletal: Denies limited range of motion Integumentary Integumentary: Reports systems reviewed and no addt'l complaints, except as documented Neurologic Neurologic: Reports systems reviewed and no addt'l complaints, except as documented Psychiatric Psychiatric: Reports systems reviewed and no addt'l complaints, except as documented Endocrine Endocrinology: Reports systems reviewed and no addt'l complaints, except as documented Hematologic/Lymphatic Hematologic/Lymphatic: Reports systems reviewed and no addt'l complaints, except as documented Allergic/Immunologic Allergic/Immunologic: Reports systems reviewed and no addt'l complaints, except as documented Physical Exam Const alert and oriented x3 General Appearance: cooperative Orientation / Consciousness: awake, oriented to person, oriented to place and oriented to time Exam Limitations: no limitations HEENT normocephalic Head and Scalp: normal to inspection, normocephalic and atraumatic Face and Sinus: normal facial exam Eyes General Eye: normal appearance of both eyes Neck full ROM Chest Chest: symmetrical chest wall rise Resp normal respiratory effort and normal air movement Auscultation: clear to auscultation bilaterally Cardio regular rate, regular rhythm, S1 normal heart sound, S2 normal heart sound, no murmurs, no rub, no gallops and no clicks GI normal to inspection, nondistended, normoactive bowel sounds and non-tender appearance of the vagina normal Bladder / Kidney Exam: no CVA tenderness Back/Spine normal ROM Extremity normal to inspection and full ROM Skin no rashes or lesions noted Neuro oriented x3, CN's II-XII intact bilaterally and moves all extremities Sensorium / Orientation: awake, alert and oriented to person Motor Exam: clonus absent Deep Tendon Reflexes: Rt Patellar (L4): 2+ and Lt Patellar (L4): 2+ Assessment & Plan (1) (spontaneous vaginal delivery): (2) Precipitous delivery: (3) History of herpes genitalis: PLAN: Plan 1) Routine PP care 2) Pain management 3) 4) F/U 2 wk and 6 wk PP 5) D/C home today
--- NOTE | 2024-02-02 10:53 | DS.PCM_ITS ---
Providers Date of Admission: 01/31/24 Primary Care Physician: MURPHY Booker Reason For Visit: VAG Diagnosis Discharge Diagnosis (1) (spontaneous vaginal delivery): Status: Acute Code(s): O80 - Encounter for full-term uncomplicated delivery (2) Precipitous delivery: Status: Acute Code(s): O62.3 - Precipitate labor (3) History of herpes genitalis: Status: Acute Code(s): Z86.19 - Personal history of other infectious and parasitic diseases Plan 1) Routine PP care 2) Pain management 3) 4) F/U 2 wk and 6 wk PP 5) D/C home today Medications at Discharge Home Medications vitamins-iron fumarate 65 mg iron-folic acid 1 mg tablet 1 tab PO DAILY 03/17/22 sertraline 50 mg tablet 100 mg PO DAILY depression 01/31/24 valacyclovir 1 gram tablet 1,000 mg PO DAILY HSV prophylaxis 01/31/24 acetaminophen 500 mg tablet 1,000 mg (2 x 500 mg) PO Q6H PRN PRN Pain 1-10 Or Fever #0 tabs 02/02/24 naproxen 500 mg tablet 500 mg PO Q8H PRN PRN Pain Score 1-10 #0 tabs 02/02/24 Weight / BMI Weight Weight: 141 lb 15.643 oz Body Mass Index (BMI) 26.4 ABG / Lab / Microbiology Data 01/31/24 23:30 D/C Instructions Discharge Diet: No restrictions Discharge Activity: Return to Normal Activity, May Drive, May Shower and May Take a Tub Bath May resume sexual activity in: 6 weeks Weight Bearing Status: Full weight bearing Lifting Restricted to (Lbs): 20 Call your doctor if you observe: Fever of 101 or Higher, Inability to urinate, Inability to have a bowel movement, Using more than 1 pad per hour, Shortness of breath, Dizziness, Fainting spells, Chest pain, Increased palpitations (irregular heartbeat), Calf discomfort and Uncontrolled pain Please Follow Up With: Lissett Addison CNM When: 2 week virtual and 6 weeks PP Meaningful Use Info Meaningful Use Meaningful Use Diagnoses (Choose all that apply): None applicable Ischemic Stroke Statin Dosing Therapy Reference: STATIN DOSE THERAPY REFERENCE: * Patients > 75 years receive moderate or high dose statin therapy. * Patients 75 years or YOUNGER should receive HIGH intensity statin dose unless contraindicated. You will be required to document reason for non-treatment if statin daily dose does not meet guidelines. HIGH DOSE STATIN THERAPY DAILY Atorvastatin > than or = to 40 mg Rosuvastatin > than or = to 20 mg Amlodipine + Atorvastatin > than or = to 2.5/40 mg Ezetimibe + Simvastatin 10/80 mg Simvastatin 80mg Discharge Plan Admission Admit Date/Time: 01/31/24 23:18 Primary Reason for Your Visit: Vaginal Delivery Attending Provider: Estephania Wynn Primary Care Provider: Shanell Savage NP Discharge Orders/Prescriptions Prescriptions: New acetaminophen 500 mg Tablet 1,000 mg PO Q6H PRN PRN (Reason: Pain 1-10 Or Fever) Qty: 0 0RF naproxen 500 mg Tablet 500 mg PO Q8H PRN PRN (Reason: Pain Score 1-10) Qty: 0 0RF Continued vit-iron fum-folic ac 65 mg iron- 1 mg Tablet 1 tab PO DAILY sertraline 50 mg tablet 100 mg PO DAILY valacyclovir 1 gram tablet 1,000 mg PO DAILY Discontinued ferrous sulfate 325 mg (65 mg iron) Capsule, Extended Release 325 mg PO QODAY famotidine 20 mg tablet 20 mg PO BID PRN PRN (Reason: heartburn) Referrals / Follow Up: Shanell Savage NP, FLEET DISPATCH MANAGER-C [Primary Care Provider] - Disposition Disposition (needs filled in before D/C Order can be placed): Home, Self Care
== END 2024-02-02 11:42 | disposition home or self-care (01) | DRG 806 ==
LOC: WPPAT 23:23 → WP 02-01 00:28
PROVIDERS: Admitting Provider Advanced Practice Midwife; PCP Nurse Practitioner Family; Visit Provider Advanced Practice Midwife
DX: O99.344 Other mental disorders complicating childbirth (principal); Z37.0 Single live birth; O98.32 Other infections with a predominantly sexual mode of transmission complicating childbirth; F32.A Depression, unspecified; F41.9 Anxiety disorder, unspecified; O69.81X0 Labor and delivery complicated by cord around neck, without compression, not applicable or unspecified; A60.00 Herpesviral infection of urogenital system, unspecified; O62.3 Precipitate labor; F43.10 Post-traumatic stress disorder, unspecified; Z3A.37 37 weeks gestation of pregnancy; Z79.899 Other long term (current) drug therapy
CPT/HCPCS: 59025; 59050; 85025; 86780; 86850; 86900; 86901; 99221; J7120; A4216; G0378; J2405

== ENCOUNTER → 2024-08-26 | Outpatient (CLI) | payer OTHER, MEDICAID, SELFPAY ==
[2024-08-26 11:46] LABS: Hepatitis B Surface Antibody Reactive; Hepatitis B Surface Antigen Non-Reactive (Nonreactive); Hepatitis C Antibody Non-Reactive (Nonreactive)
[2024-08-27 05:08] LABS: Hepatitis A AB, Total Negative (Negative); Hepatitis B Core Ab Total Negative (Negative)
[2024-08-31 12:08] LABS: Beef <0.10 kU/L (Class 0); Chocolate <0.10 kU/L (Class 0); Codfish <0.10 kU/L (Class 0); Corn <0.10 kU/L (Class 0); Egg, Whole <0.10 kU/L (Class 0); Milk (Cow) <0.10 kU/L (Class 0); Mussels <0.10 kU/L (Class 0); Peanut <0.10 kU/L (Class 0); Pork <0.10 kU/L (Class 0); Salmon <0.10 kU/L (Class 0); Shrimp <0.10 kU/L (Class 0); Soybean <0.10 kU/L (Class 0); Tuna <0.10 kU/L (Class 0); Wheat <0.10 kU/L (Class 0)
== END | disposition home or self-care (01) ==
LOC: LAB 10:02
PROVIDERS: PCP Nurse Practitioner Family; Referring Provider Nurse Practitioner Acute Care; Visit Provider Nurse Practitioner Acute Care
DX: R63.4 Abnormal weight loss (principal); R11.0 Nausea; R10.13 Epigastric pain; K76.0 Fatty (change of) liver, not elsewhere classified; K52.9 Noninfective gastroenteritis and colitis, unspecified
CPT/HCPCS: 36415; 86003; 86005; 86704; 86706; 86708; 86803; 87340

== ENCOUNTER → 2024-09-08 | Outpatient (CLI) | payer OTHER, MEDICAID, SELFPAY ==
--- NOTE | 2024-09-08 07:26 | US_ITS ---
STUDY: ABDOMINAL ULTRASOUND - ELASTOGRAPHY REASON FOR VISIT: Female, 34 years old. Fatty infiltration of the liver. TECHNIQUE: Liver stiffness measurements were obtained on a [email or web address] RS 85 ultrasound machine using a CA 1-7 probe following the SRU guidelines. 3 measurements were obtained using a 2-D-SWE method. TheIQR/M was 12% suggesting a quality data set. TECHNICAL QUALITY: Adequate. COMPARISON: None. FINDINGS: Liver: There is no demonstrated mass lesion. Median liver stiffness measured 4.3 kPa. Abdomen: There is no demonstrated mass lesion. US/Elastography Parenchyma/Organ IMPRESSION: Liver stiffness measures 4.3 kPa compatible with FO (Normal) Metavir score. Electronically Signed: Steve Carrero MD at 15:30 EST ,
== END | disposition home or self-care (01) ==
PROVIDERS: PCP Nurse Practitioner Family; Referring Provider Nurse Practitioner Acute Care; Visit Provider Nurse Practitioner Acute Care
DX: R63.4 Abnormal weight loss (principal); R11.0 Nausea; R10.13 Epigastric pain; K76.0 Fatty (change of) liver, not elsewhere classified; K52.9 Noninfective gastroenteritis and colitis, unspecified
CPT/HCPCS: 76981